=== PATIENT | male | born 1985 | race Caucasian/White ===

== ENCOUNTER 2019-06-08 11:28 | Emergency (ER) | payer OTHER ==
[~2019-06-08] VITALS: Ht 188 cm; Wt 77.1 kg
[~2019-06-08 11:28] MED LIST: Naprosyn500 MG PO; OMEP20ER; PENVK500 PO
[2019-06-08] MEDS ORDERED: IBUP600 PO (13:06)
[2019-06-08] MEDS ORDERED: CRUTCH4 XX (13:06)
== END 2019-06-08 13:17 | disposition home or self-care (01) ==
LOC: ER 11:28
DX: S82.892A Other fracture of left lower leg, initial encounter for closed fracture (principal); F17.200 Nicotine dependence, unspecified, uncomplicated; Z88.2 Allergy status to sulfonamides; W19.XXXA Unspecified fall, initial encounter
CPT/HCPCS: 29515; 73610; 99283-25; A9270-GY

== ENCOUNTER 2024-03-30 21:25 | Emergency (ER) | payer OTHER ==
[~2024-03-30] VITALS: Ht 185.4 cm; Wt 81.7 kg
[~2024-03-30 21:25] MED LIST changes: +CRUTCH4 XX; +IBUP600 PO
[2024-03-30 22:48] VITALS: BP 127/89
[2024-03-31] MEDS ORDERED: Diphth,Pertuss(Acell),Tet Vac 0.5 ML VIAL IM ONE (01:45)
== END 2024-03-31 02:38 | disposition home or self-care (01) ==
LOC: ER 21:25
DX: S61.213A Laceration without foreign body of left middle finger without damage to nail, initial encounter (principal); Y99.0 Civilian activity done for income or pay; W22.8XXA Striking against or struck by other objects, initial encounter; Z88.2 Allergy status to sulfonamides; Z79.899 Other long term (current) drug therapy; F17.200 Nicotine dependence, unspecified, uncomplicated
CPT/HCPCS: 12001; 73140; 90471; 90715; 99283-25